=== PATIENT | male | born 1935 | race African-American/Black ===

== ENCOUNTER → 2019-05-28 | Outpatient (CLI) | payer OTHER ==
[~2019-05-28] MED LIST: ASPIRIN325; AZOR 5-40 MG T1 EACH PO; BISOPROLOL FUMAR5 MG PO; CLARITIN10 MG PO; FLONASE 0.05%50 MCG NASAL; NORFLEX100 MG PO; NORVASC 5 MG TAB5 MG PO; PRINIVIL5 MG PO; PROPRANOLOL HC160 MG PO; ULTRAM 50MG TAB50 MG PO; ZPAK PO
== END ==
LOC: RAD 10:38
DX: R91.8 Other nonspecific abnormal finding of lung field (principal)

== ENCOUNTER → 2019-06-10 | Outpatient (CLI) | payer OTHER | LOC: RAD 14:15 | DX: J18.9 Pneumonia, unspecified organism (principal) ==